=== PATIENT | female | born 1970 | race Two or more races ===

== ENCOUNTER → 2021-11-28 | Outpatient (CLI) | payer OTHER ==
[2021-11-28 16:45] LABS: BASO # 0.1 10^3/uL (0.0-0.2); BASO % 0.9 % (0.0-1.0); EOS # 0.1 10^3/uL (0.0-0.5); EOS % 1.2 % (0.0-3.0); HEMATOCRIT 34.8 % (36.0-47.0); HEMOGLOBIN 10.4 g/dl (12.0-15.5); LYMPH # 2.1 10^3/uL (1.5-5.0); LYMPH % 36.2 % (24.0-44.0); MEAN CORPUSCULAR HEMOGLOBIN 23.4 pg (27.0-33.0); MEAN CORPUSCULAR HGB CONC 29.9 g/dl (32.0-36.5); MEAN CORPUSCULAR VOLUME 78.2 fl (80.0-96.0); MONO # 0.4 10^3/uL (0.0-0.8); MONO % 7.5 % (2.0-8.0); NEUTROPHILS # 3.1 10^3/uL (1.5-8.5); NEUTROPHILS % 53.9 % (36.0-66.0); PLATELET COUNT, AUTOMATED 302 10^3/uL (150-450); RED BLOOD COUNT 4.45 10^6/uL (4.00-5.40); WHITE BLOOD COUNT 5.8 10^3/uL (4.0-10.0)
[2021-11-28 17:25] LABS: ALT/SGPT 26 U/L (12-78); BILIRUBIN,TOTAL 0.5 MG/DL (0.2-1.0); BLOOD UREA NITROGEN 12 MG/DL (7-18); C REACTIVE PROTEIN QUANTITATIV 0.62 MG/DL (0.00-0.30); CALCIUM LEVEL 9.1 MG/DL (8.5-10.1); CARBON DIOXIDE LEVEL 27 MEQ/L (21-32); CHLORIDE LEVEL 107 MEQ/L (98-107); CREATININE FOR GFR 0.72 MG/DL (0.55-1.30); FREE T4 0.75 NG/DL (0.76-1.46); GLOMERULAR FILTRATION RATE > 60.0 (>51); GLUCOSE, FASTING 102 MG/DL (70-100); POTASSIUM SERUM 4.2 MEQ/L (3.5-5.1); RHEUMATOID FACTOR QUANT < 10.0 IU/ML (<15.0); SODIUM LEVEL 140 MEQ/L (136-145); TOTAL PROTEIN 7.6 GM/DL (6.4-8.2); URIC ACID 4.5 MG/DL (2.6-6.0)
[2021-11-28 18:22] LABS: ERYTHROCYTE SEDIMENTATION RATE 35 mm/hr (0-30)
== END ==
LOC: M PLALAB 14:26
PROVIDERS: ATTEND Nurse Practitioner Adult Health
DX: M79.645 Pain in left finger(s) (principal); M19.032 Primary osteoarthritis, left wrist; M19.042 Primary osteoarthritis, left hand

== ENCOUNTER → 2022-01-08 | Outpatient (CLI) | payer OTHER | LOC: M WHC 15:33 | PROVIDERS: ATTEND Nurse Practitioner Adult Health | DX: Z12.31 Encounter for screening mammogram for malignant neoplasm of breast (principal); R92.8 Other abnormal and inconclusive findings on diagnostic imaging of breast ==

== ENCOUNTER → 2022-01-28 | Outpatient (CLI) | payer OTHER | LOC: M WHC 14:59 | PROVIDERS: ATTEND Nurse Practitioner Adult Health | DX: R92.8 Other abnormal and inconclusive findings on diagnostic imaging of breast (principal); N63.20 Unspecified lump in the left breast, unspecified quadrant; N63.10 Unspecified lump in the right breast, unspecified quadrant | CPT/HCPCS: 76642; 77066; G0279 ==

== ENCOUNTER → 2022-05-29 | Outpatient (CLI) | payer OTHER ==
[~2022-05-29] MED LIST: ANAS1TAB2 PO; CETI10CH PO; FLON1SPR NARES
== END ==
LOC: M WHC 14:49
PROVIDERS: ATTEND Internal Medicine Hematology & Oncology
DX: C50.112 Malignant neoplasm of central portion of left female breast (principal)

== ENCOUNTER 2022-06-16 15:33 | Outpatient (RCR) | payer OTHER | END 2022-06-16 23:59 | disposition home or self-care (01) | LOC: M ONCR 15:33 | PROVIDERS: ATTEND General Practice | DX: C50.112 Malignant neoplasm of central portion of left female breast (principal) ==

== ENCOUNTER 2022-07-07 15:30 | Outpatient (RCR) | payer OTHER | END 2022-07-16 | LOC: M ONCR 15:30 | PROVIDERS: ATTEND General Practice | DX: C50.112 Malignant neoplasm of central portion of left female breast (principal) ==

== ENCOUNTER → 2022-08-06 | Outpatient (CLI) | payer OTHER | LOC: M ONCR 14:32 | PROVIDERS: ATTEND General Practice | DX: C50.112 Malignant neoplasm of central portion of left female breast (principal); L59.8 Other specified disorders of the skin and subcutaneous tissue related to radiation; Z92.3 Personal history of irradiation ==

== ENCOUNTER → 2022-11-25 | Outpatient (CLI) | payer OTHER ==
[2022-11-25 11:07] LABS: BASO # 0.1 10^3/uL (0.0-0.2); BASO % 1.8 % (0.0-1.0); EOS # 0.1 10^3/uL (0.0-0.5); EOS % 2.1 % (0.0-3.0); HEMATOCRIT 31.9 % (36.0-47.0); HEMOGLOBIN 9.5 g/dl (12.0-15.5); LYMPH % 25.6 % (24.0-44.0); MEAN CORPUSCULAR HEMOGLOBIN 23.6 pg (27.0-33.0); MEAN CORPUSCULAR HGB CONC 29.8 g/dl (32.0-36.5); MEAN CORPUSCULAR VOLUME 79.4 fl (80.0-96.0); MONO # 0.5 10^3/uL (0.0-0.8); MONO % 12.7 % (2.0-8.0); NEUTROPHILS # 2.2 10^3/uL (1.5-8.5); NEUTROPHILS % 57.8 % (36.0-66.0); PLATELET COUNT, AUTOMATED 279 10^3/uL (150-450); RED BLOOD COUNT 4.02 10^6/uL (4.00-5.40); WHITE BLOOD COUNT 3.8 10^3/uL (4.0-10.0)
[2022-11-25 11:32] LABS: ALBUMIN 3.8 G/DL (3.2-5.2); ALKALINE PHOSPHATASE 83 U/L (46-116); ALT/SGPT 22 U/L (7.0-40); AST/SGOT 18 U/L (<34); BILIRUBIN,TOTAL 0.7 MG/DL (0.3-1.2); BLOOD UREA NITROGEN 12 MG/DL (9-23); CALCIUM LEVEL 9.1 MG/DL (8.5-10.1); CARBON DIOXIDE LEVEL 29 MMOL/L (20-31); CHLORIDE LEVEL 104 MMOL/L (98-107); CHOLESTEROL LEVEL 197 MG/DL (<200); CREATININE FOR GFR 0.69 MG/DL (0.55-1.30); GLOMERULAR FILTRATION RATE > 60.0 (>51); GLUCOSE, FASTING 89 MG/DL (60-100); HDL CHOLESTEROL 50.5 MG/DL (>40); LDL CHOLESTEROL 132.7 MG/DL (<100); NON-HDL-C 146.5 MG/DL; POTASSIUM SERUM 4.5 MMOL/L (3.5-5.1); SODIUM LEVEL 137 MMOL/L (136-145); TOTAL PROTEIN 6.8 G/DL (5.7-8.2); TRIGLYCERIDES LEVEL 69 MG/DL (<150)
[2022-11-25 11:33] LABS: THYROID STIMULATING HORMONE 2.656 uIU/ML (0.55-4.78)
[2022-11-25 13:38] LABS: IRON (FE) 36 UG/DL (50-170)
[2022-11-25 13:39] LABS: FERRITIN 2.6 NG/ML (7.3-270.7); VITAMIN B12 LEVEL 182 PG/ML (211-911)
== END ==
LOC: M PLALAB 08:54
PROVIDERS: ATTEND Family Medicine
DX: Z13.220 Encounter for screening for lipoid disorders (principal); Z13.29 Encounter for screening for other suspected endocrine disorder; Z13.0 Encounter for screening for diseases of the blood and blood-forming organs and certain disorders involving the immune mechanism; M67.34 Transient synovitis, hand; M19.042 Primary osteoarthritis, left hand

== ENCOUNTER 2022-12-01 10:58 | Outpatient (CLI) | payer OTHER ==
[~2022-12-01] VITALS: Ht 163.8 cm; Wt 96.0 kg
[2022-12-01 11:05] VITALS: BP 118/56
[2022-12-01] MEDS ORDERED: FERRIC CARBOXYMALTOSE INJ 750 MG in NS 250 ML (>50kg) IV ONE ×3 (11:30)
[2022-12-01 12:55] VITALS: BP 143/97
== END 2022-12-01 13:10 | disposition home or self-care (01) ==
LOC: M INFU 10:58
PROVIDERS: ATTEND Family Medicine
DX: D50.9 Iron deficiency anemia, unspecified (principal)
CPT/HCPCS: 96365; J1439

== ENCOUNTER 2022-12-08 11:45 | Outpatient (CLI) | payer OTHER ==
[~2022-12-08] VITALS: Ht 163.8 cm; Wt 94.5 kg
[2022-12-08 11:45] VITALS: BP 135/68
[~2022-12-08 11:45] MED LIST changes: +FERRIC CARBOXYMALTOSE INJ 750 MG in NS 250 ML (>50kg) IV ONE
[2022-12-08 12:48] VITALS: BP 119/64
== END 2022-12-08 12:50 | disposition home or self-care (01) ==
LOC: M INFU 11:45
PROVIDERS: ATTEND Family Medicine
DX: D50.9 Iron deficiency anemia, unspecified (principal)
CPT/HCPCS: 96365; J1439

== ENCOUNTER → 2022-12-30 | Outpatient (CLI) | payer OTHER ==
[~2022-12-30] MED LIST changes: -FERRIC CARBOXYMALTOSE INJ 750 MG in NS 250 ML (>50kg) IV ONE
== END ==
LOC: M ONCR 14:44
PROVIDERS: ATTEND Specialist
DX: C50.912 Malignant neoplasm of unspecified site of left female breast (principal); Z79.811 Long term (current) use of aromatase inhibitors; Z92.3 Personal history of irradiation

== ENCOUNTER → 2023-02-09 | Outpatient (CLI) | payer OTHER | LOC: M WHC 08:08 | PROVIDERS: ATTEND Family Medicine | DX: Z12.31 Encounter for screening mammogram for malignant neoplasm of breast (principal); Z85.3 Personal history of malignant neoplasm of breast; Z98.890 Other specified postprocedural states ==

== ENCOUNTER → 2023-03-04 | Outpatient (CLI) | payer OTHER ==
[2023-03-04 13:11] LABS: FERRITIN 93.7 NG/ML (7.3-270.7); PERCENT SATURATION 25.3 % (13.2-45.0)
[2023-03-04 13:13] LABS: BASO # 0.1 10^3/uL (0.0-0.2); BASO % 1.2 % (0.0-1.0); EOS # 0.1 10^3/uL (0.0-0.5); EOS % 1.9 % (0.0-3.0); HEMATOCRIT 39.6 % (36.0-47.0); HEMOGLOBIN 12.6 g/dl (12.0-15.5); LYMPH # 0.9 10^3/uL (1.5-5.0); LYMPH % 21.7 % (24.0-44.0); MEAN CORPUSCULAR HEMOGLOBIN 29.8 pg (27.0-33.0); MEAN CORPUSCULAR HGB CONC 31.8 g/dl (32.0-36.5); MEAN CORPUSCULAR VOLUME 93.6 fl (80.0-96.0); MONO # 0.4 10^3/uL (0.0-0.8); MONO % 10.1 % (2.0-8.0); NEUTROPHILS # 2.8 10^3/uL (1.5-8.5); NEUTROPHILS % 64.9 % (36.0-66.0); PLATELET COUNT, AUTOMATED 216 10^3/uL (150-450); RED BLOOD COUNT 4.23 10^6/uL (4.00-5.40); WHITE BLOOD COUNT 4.2 10^3/uL (4.0-10.0)
== END ==
LOC: M PLALAB 08:50
PROVIDERS: ATTEND Family Medicine
DX: D50.9 Iron deficiency anemia, unspecified (principal); D51.9 Vitamin B12 deficiency anemia, unspecified

== ENCOUNTER 2023-04-01 11:31 | Day surgery (SDC) | payer OTHER ==
[~2023-04-01] VITALS: Ht 163.8 cm; Wt 95.2 kg
[~2023-04-01 11:31] MED LIST changes: +B-12100010 PO; +FERR325T81 PO; +NS 1,000 ML IV ONE; +VITA100093 PO
[2023-04-01] MEDS ORDERED: fentaNYL 100 MCG/2 ML INJECTION As Ordered ONE (12:50)
[2023-04-01] MEDS ORDERED: LIDOCAINE 2% 100MG/5ML SDV (FOR ANES.) As Ordered ONE (12:50)
[2023-04-01] MEDS ORDERED: propofoL 200 MG/20 ML VIAL As Ordered ONE (13:00)
[2023-04-01 13:16] VITALS: TEMP 97.1
[2023-04-01 13:48] VITALS: BP 148/72; O2SAT 100
== END 2023-04-01 14:01 | disposition home or self-care (01) ==
LOC: M OPP 11:31
PROVIDERS: ATTEND Surgery
DX: D50.9 Iron deficiency anemia, unspecified (principal); K22.89 Other specified disease of esophagus; K44.9 Diaphragmatic hernia without obstruction or gangrene; K29.70 Gastritis, unspecified, without bleeding; Z79.1 Long term (current) use of non-steroidal anti-inflammatories (NSAID); Z79.899 Other long term (current) drug therapy
CPT/HCPCS: 43239; 45378; 88305; J3010

== ENCOUNTER → 2024-02-02 | Outpatient (CLI) | payer OTHER ==
[~2024-02-02] MED LIST changes: -NS 1,000 ML IV ONE
== END ==
LOC: M WUC 14:32
PROVIDERS: ATTEND Student in an Organized Health Care Education/Training Program
DX: M79.672 Pain in left foot (principal); M19.072 Primary osteoarthritis, left ankle and foot; M85.872 Other specified disorders of bone density and structure, left ankle and foot

== ENCOUNTER → 2024-02-12 | Outpatient (CLI) | payer OTHER | LOC: M WHC 09:55 | PROVIDERS: ATTEND Family Medicine | DX: Z12.31 Encounter for screening mammogram for malignant neoplasm of breast (principal); R92.323 Mammographic fibroglandular density, bilateral breasts ==

== ENCOUNTER → 2024-07-05 | Outpatient (CLI) | payer OTHER | LOC: M ONCR 14:58 | PROVIDERS: ATTEND General Practice | DX: Z08 Encounter for follow-up examination after completed treatment for malignant neoplasm (principal); Z85.3 Personal history of malignant neoplasm of breast; Z79.811 Long term (current) use of aromatase inhibitors; Z98.890 Other specified postprocedural states; Z92.3 Personal history of irradiation ==

== ENCOUNTER → 2024-12-09 | Outpatient (CLI) | payer OTHER | LOC: M WHC 08:06 | PROVIDERS: ATTEND Internal Medicine Hematology & Oncology | DX: C50.112 Malignant neoplasm of central portion of left female breast (principal); Z79.899 Other long term (current) drug therapy; M85.851 Other specified disorders of bone density and structure, right thigh ==

== ENCOUNTER → 2025-07-05 | Outpatient (CLI) | payer OTHER | LOC: M ONCR 15:44 | PROVIDERS: ATTEND General Practice | DX: C50.112 Malignant neoplasm of central portion of left female breast (principal); Z79.811 Long term (current) use of aromatase inhibitors; Z92.3 Personal history of irradiation ==